=== PATIENT | male | born 1995 | race Caucasian/White ===

== ENCOUNTER 2022-10-29 20:43 | Emergency (ER) | payer SELFPAY ==
[2022-10-29 20:43] VITALS: BP 135/89; PULSE 78; RESP 18; TEMP 36.2; O2SAT 100; BMI 25.8
--- NOTE | 2022-10-29 21:26 | CT_ITS ---
EXAM: CT HEAD AND CERVICAL SPINE WITHOUT INTRAVENOUS CONTRAST CLINICAL INDICATION: Trauma pain. Laceration. TECHNIQUE: Helically acquired images were obtained of the head/brain and cervical spine without intravenous contrast. 2D reformatted images were reviewed. This CT exam was performed using one or more of the following dose reduction techniques: automated exposure control, adjustment of the mA and/or kV according to patient size, and/or use of iterative reconstruction technique. COMPARISON: No relevant prior studies available. FINDINGS: BRAIN AND EXTRA-AXIAL SPACES: No significant abnormality. No intra- or extra-axial hemorrhage. No evidence of acute infarct. No intracranial mass or mass effect. There is preservation of the [place]/white matter interface. Posterior fossa structures are unremarkable. Ventricles are appropriate for age. No hydrocephalus. Basal cisterns are patent. SKULL: No significant abnormality. No discrete lytic or blastic abnormalities. SINUSES: No significant findings. MASTOID AIR CELLS: No significant abnormality. Clear. VERTEBRAE: No significant abnormality. No fracture. No traumatic subluxation. No discrete lytic or blastic abnormality. Normal alignment. Normal craniocervical junction and cervicothoracic junction. DISCS/SPINAL CANAL/NEURAL FORAMINA: No significant abnormality. Disc heights are preserved. No critical stenosis. SOFT TISSUES: Right frontal scalp laceration and soft tissue swelling. No prevertebral soft tissue swelling. LYMPH NODES: No significant abnormality. No cervical adenopathy. LUNG APICES: Incidentally identified azygous lobe and fissure. CT/Spine Cervical without Contras IMPRESSION: 1. Right frontal scalp laceration and soft tissue swelling. No CT evidence of acute intracranial pathology. No calvarial fracture. 2. No CT evidence of acute cervical spine injury. Electronically Signed: Ismael Wang DO at 22:02 EDT ,
--- NOTE | 2022-10-29 21:26 | CT_ITS ---
EXAM: CT HEAD AND CERVICAL SPINE WITHOUT INTRAVENOUS CONTRAST CLINICAL INDICATION: Trauma pain. Laceration. TECHNIQUE: Helically acquired images were obtained of the head/brain and cervical spine without intravenous contrast. 2D reformatted images were reviewed. This CT exam was performed using one or more of the following dose reduction techniques: automated exposure control, adjustment of the mA and/or kV according to patient size, and/or use of iterative reconstruction technique. COMPARISON: No relevant prior studies available. FINDINGS: BRAIN AND EXTRA-AXIAL SPACES: No significant abnormality. No intra- or extra-axial hemorrhage. No evidence of acute infarct. No intracranial mass or mass effect. There is preservation of the [place]/white matter interface. Posterior fossa structures are unremarkable. Ventricles are appropriate for age. No hydrocephalus. Basal cisterns are patent. SKULL: No significant abnormality. No discrete lytic or blastic abnormalities. SINUSES: No significant findings. MASTOID AIR CELLS: No significant abnormality. Clear. VERTEBRAE: No significant abnormality. No fracture. No traumatic subluxation. No discrete lytic or blastic abnormality. Normal alignment. Normal craniocervical junction and cervicothoracic junction. DISCS/SPINAL CANAL/NEURAL FORAMINA: No significant abnormality. Disc heights are preserved. No critical stenosis. SOFT TISSUES: Right frontal scalp laceration and soft tissue swelling. No prevertebral soft tissue swelling. LYMPH NODES: No significant abnormality. No cervical adenopathy. LUNG APICES: Incidentally identified azygous lobe and fissure. CT/Brain/Head without Contrast IMPRESSION: 1. Right frontal scalp laceration and soft tissue swelling. No CT evidence of acute intracranial pathology. No calvarial fracture. 2. No CT evidence of acute cervical spine injury. Electronically Signed: Ismael Wang DO at 22:02 EDT ,
--- NOTE | 2022-10-29 21:28 | EX.ED.GENINJ ---
HPI History of Present Illness Chief Complaint: Laceration Narrative Narrative: 27-year-old male who denies significant past medical history presents with head injury and laceration to his frontal scalp which she sustained prior to arrival. He and his states that they were playing a game at home, and he did not realize how close he was to the corner of [place]. He bent over and struck his head and sustained a laceration to the right frontal scalp area. He believes his tetanus immunization is up-to-date. While he did not have loss of consciousness, he has a headache, and diffuse neck pain. He denies any paresthesias of his arms or legs. No other injury. He does not take blood thinners. [facility] Medical History History of broken collarbone Home Medications NK 10/29/22 [History Last Taken Unknown] Allergy/AdvReac Type Severity Reaction Status Date / Time No Known Allergies Allergy Verified 10/29/22 20:45 Family History no significant family his Surgical History no surgical history Social History household members: spouse housing: house Smoking Status: Light Smoker (<10/day) ROS ROS ED ROS Narrative Constitutional: No fever, no chills. HEENT: No sore throat. Diffuse neck pain. No loss of vision. No rhinorrhea. Laceration to right frontal scalp. Cardiovascular: No chest pain. No palpitations. No pedal edema. Respiratory: No cough, no shortness of breath. Abdominal: No abdominal pain. No nausea. No vomiting. Genitourinary: No dysuria. No hematuria. Musculoskeletal: No myalgias. No arthralgias. Neurologic: Positive headaches. No dizziness. No lightheadedness. Skin: No rash. No change in color. Psychiatric: No depression. No anxiety. EXAM Physical Exam Narrative Exam Narrative: Afebrile. Vital signs noted. GCS 15. ABCs are intact. HEENT: Normocephalic. 2.5 cm laceration on frontal scalp, not gaping. No apparent galeal involvement. PERRL, EOMI. Neck soft and supple. No point tenderness or step off. Full range of motion. Cardiovascular: Regular rate and rhythm. No murmurs, rubs, or gallops appreciated. Respiratory: No tachypnea. Lungs clear to auscultation bilaterally. Gastrointestinal: Abdomen soft, nontender, with normoactive bowel sounds. No rebound or guarding. Neurological: Awake. Alert. Oriented x3. Nonfocal, nonlateralizing. Able to raise arms above head without difficulty. Moves all extremities. Skin: No rash. Normal color. No pallor. Musculoskeletal: No pedal edema. Full range of motion extremities. Const Vital Signs: 10/29/22 20:43 Temperature 97.1 F L Temperature Source Temporal Pulse Rate 78 Respiratory Rate 18 Blood Pressure 135/89 H Blood Pressure Mean 104 Pulse Ox 100 Oxygen Delivery Method Room Air MDM MDM MDM Narrative Medical decision making narrative: Wound was cleansed. I do feel that CT of the brain and C-spine are indicated to rule out fracture. He does have a closed head injury. I reviewed the CT imaging and interpreted individually and see no evidence of acute fracture or skull fracture/intracranial bleed. There is soft tissue swelling and laceration noted in the frontal area of the scalp on the head CT. I reviewed the radiology report which confirms my independent interpretation. Let had been applied for approximately 45 minutes. While stabling the incision closed, patient was experiencing pain. I offered for intradermal lidocaine to be injected but he declined. A total of 6 surgical nathen were inserted. Patient tolerated procedure well. He was given 1 [place] tablet for analgesia but otherwise will take [id number] medications. Closed head injury instructions were given. He is to have the nathen removed in 7 to 10 days by his primary care provider or return to the emergency department. He was given a staple remover to take to his appointment. At this point in time, I feel he can be discharged safely home with follow-up. Return instructions to the emergency department were reviewed. Disposition is discharged home in stable condition. Discharge Plan Triage Chief Complaint: Laceration ED Provider: Howard Castillo Dx/Rx/DC Orders Clinical Impression: Closed head injury, Scalp laceration, Cervical strain Instructions: ED Head Injury (Adult), ED Laceration Scalp Stitches or At[place], ED Neck Sprain or Strain Prescriptions: No Action NK Primary Care Provider: Care Physician,No Primary Referrals: Daniel Covington MD [Med Staff - Active Staff] - 10 Day for suture removal Care Physician,No Primary [Primary Care Provider] - Activity Restrictions/Additional Instructions: Follow-up with your primary care provider in 10 days for staple removal. Be sure to take the staple remover you were given. You may return to the ED as well, but you will be charged for an ED visit. Disposition Disposition: Home, Self Care
[2022-10-29] MEDS: Lidocaine/Epi/Tetracaine 50 ML 1 APPLIC TOPICAL (21:45)
[2022-10-29] MEDS: HYDROcodone Bitartrate/Apap 5/325 Tablet PO (23:03)
[2022-10-29 23:18] VITALS: RESP 16
== END 2022-10-29 23:10 | disposition home or self-care (01) ==
PROVIDERS: Emergency Provider Emergency Medicine; Visit Provider Emergency Medicine
DX: S01.01XA Laceration without foreign body of scalp, initial encounter (principal); S16.1XXA Strain of muscle, fascia and tendon at neck level, initial encounter; F17.200 Nicotine dependence, unspecified, uncomplicated; X58.XXXA Exposure to other specified factors, initial encounter
CPT/HCPCS: 70450; 72125; 99283